=== PATIENT | male | born 1985 | race Caucasian/White ===

== ENCOUNTER 2018-10-04 05:42 | Emergency (ER) | payer MEDICAID ==
[~2018-10-04] VITALS: Ht 185.4 cm; Wt 83.9 kg
[2018-10-04 05:49] VITALS: BP 132/84
[2018-10-04] MEDS ORDERED: ACETAMINOPHEN 500 MG TAB PO ONE (08:00)
== END 2018-10-04 08:22 | disposition home or self-care (01) ==
LOC: ER 05:42
DX: S00.212A Abrasion of left eyelid and periocular area, initial encounter (principal); S00.81XA Abrasion of other part of head, initial encounter; F17.210 Nicotine dependence, cigarettes, uncomplicated; Z90.49 Acquired absence of other specified parts of digestive tract; Y08.89XA Assault by other specified means, initial encounter; Y93.89 Activity, other specified; Y99.8 Other external cause status; Y92.89 Other specified places as the place of occurrence of the external cause
CPT/HCPCS: 70450